=== PATIENT | male | born 1985 | race Caucasian/White ===

== ENCOUNTER → 2016-06-22 | Emergency (ER) | payer OTHER ==
[2016-06-22 17:54] VITALS: BP 128/89
--- OUTSIDE RECORDS SUMMARY | 2016-06-23 10:17 | XMS REPORT | Continuity of Care Document ---
:1985 Author Organization [facility] ([facility]) [place] [address] Phone [phone] Care Team Providers Name Role Phone Provider, No-Primary Care Primary Care Provider Unavailable Source Comments This disclosure is being made pursuant to the Care Everywhere program, applicable federal and state laws, and may not contain all informaitonavailable regarding this patient.[facility] ([facility]) Active Allergies and Adverse Reactions No Known Allergies Current Medications No known medications Active Problems Not on file Most Recent Encounters Date Type Specialty Providers Description 05/02/2016 Hospital Emergency Manju Garrett MD Dx: Methamphetamine Encounter Medicine abuse (Primary Dx) Social History Tobacco Use Types Packs/Day Years Used Date Current Every Day Smoker Cigarettes 0.5 Alcohol Use Drinks/Week oz/Week Comments Yes 1x/week Last Filed Vital Signs Vital Sign Reading Time Taken Blood Pressure 115/68 05/02/2016 8:05 PM FRATERNITY ADVISER Pulse 80 05/02/2016 8:05 PM FRATERNITY ADVISER Temperature 36.5 C (97.7 F) 05/02/2016 8:05 PM FRATERNITY ADVISER Respiratory Rate 18 05/02/2016 8:05 PM FRATERNITY ADVISER Height - - Weight - - Body Mass Index - - Oxygen Saturation 99% 05/02/2016 8:05 PM FRATERNITY ADVISER Plan of Care Health Maintenance Due Date Last Done Comments Hepatitis B Vaccine (1 of 3 - Primary Series) 1985 Tdap Vaccine 12/20/1998 Lipid Disorder Screening 12/20/2005 MMR Vaccine 12/20/2005 Td Vaccine 12/20/2005 Varicella Vaccine (1 of 2 - Adult - No Evidence of 12/20/2005 Immunity) Pneumococcal Vaccine (1 of 1 - PPSV23) 12/20/2006 Influenza Vaccine: Seasonal (#1) 12/01/2015 Results from Last 3 Months Not on file
== END | disposition home or self-care (01) ==
LOC: ER 17:06
DX: R22.32 Localized swelling, mass and lump, left upper limb (principal)

== ENCOUNTER 2016-08-30 11:12 | Emergency (ER) | payer SELFPAY ==
[2016-08-30 11:23] VITALS: BP 125/72
--- NOTE | 2016-08-30 11:39 | ERNOTE ---
ENT HPI Presenting Symptoms: dental pain Time Seen by Provider: 08/30/16 11:24 Source: patient - Immun/Allergies/Home Medications Immunizations: IMMUNIZATION HX Immunizations Up to Date Yes History of Influenza Vaccine Yes Hx Pneumococcal Vaccination Yes Allergies/Adverse Reactions: Allergies Allergy/AdvReac Type Severity Reaction Status Date / Time No Known Allergies Allergy Verified 08/30/16 11:23 Home Medications: HOME MEDICATIONS Ibuprofen [Motrin] 800 mg PO PRN PRN 08/30/16 [Last Taken Unknown] Penicillin V Potassium [Pen-Vee K] 500 mg PO Q8H #30 tab 08/30/16 [Last Taken Unknown] traMADol HCL [Ultram] 50 mg PO QID PRN #20 tablet 08/30/16 [Last Taken Unknown] - History of Present Illness Narrative: Patient has a history of profound dental caries that occasionally flareup. He isn't a current episode of that right now virtually all of his lower teeth being down to the gums. Patient rates his pain as perhaps 6 or 7 out of 10. He states that he knows that he needs to get in to see a dentist. Severity: Present: moderate ENT Location: Present: dental Prearrival Treatment: Present: no prearrival treatment - ibuprofen Modifying Factors - Improves: Reports: nothing Prior Treament: Reports: similar symptoms before Review of Systems - Review of Systems Constitutional: Present: See HPI EYE: Present: no symptoms reported ENT: Present: See HPI - profound dental caries Respiratory: Present: no symptoms reported Cardiology: Present: no symptoms reported Gastrointestinal/Abdominal: Present: no symptoms reported Genitourinary: Present: no symptoms reported Musculoskeletal: Present: no symptoms reported Skin: Present: no symptoms reported Neurological: Present: no symptoms reported Endocrine: Present: no symptoms reported Hematologic/Lymphatic: Present: no symptoms reported Psych: Present: no symptoms reported - Patient's Past Medical History Patient History - Medical: No pertinent hx, Other - dental caries Patient History - Cardiac/Respiratory: No pertinent hx Patient History - Cancer: No Hx of Cancer Patient History - Surgical Procedures: Other Patient History - Other: None - Social History Living Situations: home Abuse History: No History of abuse Psych History: No pertinent hx Smoking Status: Current every day smoker Alcohol Use: none Drug Use: none - Immunizations Immunizations Up to Date: Yes Hx Pneumococcal Vaccination: Yes History of Influenza Vaccine: Yes Physical Exam - Physical Exam General Appearance: Present: wd/wn, alert, moderate distress Eye Exam: Normal inspection: bilateral, PERRL: bilateral Ears, Nose, Throat: Present: normal pharynx, other - numerous dental caries in the lower mouth in various stages of advanced decay Neck: Present: normal inspection, nontender Respiratory: Present: no respiratory distress, normal breath sounds, no accessory muscle use, chest nontender, lungs clear Cardiovascular/Chest: Present: regular rate, rhythm, no murmur, normal peripheral pulses Gastrointestinal/Abdominal: Present: normal bowel sounds, nontender, nondistended, soft, no organomegaly Rectal Exam: Present: deferred Back Exam: Present: normal inspection, normal range of motion Extremity Exam: Present: normal inspection, non-tender, no edema, normal range of motion Neurological Exam: Present: alert, oriented, normal mood/affect Skin Exam: Present: normal color, warm/dry Lymphatic Exam: Present: no adenopathy ED Progress - Vital Signs Patient's Vital Signs:: I have reviewed the patient's vital signs. Vital Signs: Vital Signs 08/30/16 11:17 Temperature 36.4 C L Pulse Rate 88 Respiratory 16 Rate Blood Pressure 125/72 O2 Sat by Pulse 100 Oximetry - Progress/Reassessment Chief Complaint: Dental Problem Plan - Plan Plan: Patient will be started on Pen-Vee K, tramadol and it will be suggested to go to the [facility] dental clinic if he is not able to find a local dentist. Departure Clinical Impression: Pain due to dental caries - Departure Disposition: Home self-care Condition: Good Instructions: Dental Caries, [id number] Prescriptions: Penicillin V Potassium [Pen-Vee K] 500 mg PO Q8H #30 tab traMADol HCL [Ultram] 50 mg PO QID PRN #20 tablet PRN Reason: Moderate Pain
--- OUTSIDE RECORDS SUMMARY | 2016-08-30 11:40 | XMS REPORT | Continuity of Care Document ---
:1985 Author Organization [facility] ([facility]) [place] [address] Phone [phone] Care Team Providers Name Role Phone Provider, No-Primary Care Primary Care Provider Unavailable Source Comments This disclosure is being made pursuant to the Care Everywhere program, applicable federal and state laws, and may not contain all informaitonavailable regarding this patient.[facility] ([facility]) Active Allergies and Adverse Reactions No Known Allergies Current Medications No known medications Active Problems Not on file Social History Tobacco Use Types Packs/Day Years Used Date Current Every Day Smoker Cigarettes 0.5 Alcohol Use Drinks/Week oz/Week Comments Yes 1x/week Last Filed Vital Signs Vital Sign Reading Time Taken Blood Pressure 115/68 05/02/2016 8:05 PM PANEL BUILDER Pulse 80 05/02/2016 8:05 PM PANEL BUILDER Temperature 36.5 C (97.7 F) 05/02/2016 8:05 PM PANEL BUILDER Respiratory Rate 18 05/02/2016 8:05 PM PANEL BUILDER Height - - Weight - - Body Mass Index - - Oxygen Saturation 99% 05/02/2016 8:05 PM PANEL BUILDER Plan of Care Health Maintenance Due Date [...]
== END 2016-08-30 11:40 | disposition home or self-care (01) ==
LOC: ER 11:12
DX: K08.89 Other specified disorders of teeth and supporting structures (principal); K02.9 Dental caries, unspecified; F17.210 Nicotine dependence, cigarettes, uncomplicated